=== PATIENT | female | born 1980 | race Caucasian/White ===

== ENCOUNTER 2016-12-20 15:44 | Emergency (ER) | payer MEDICAID ==
[~2016-12-20] VITALS: Ht 160 cm; Wt 72.5 kg
[~2016-12-20 15:44] MED LIST: ALBU2TAB PO
[2016-12-20 17:00] LABS: HEMATOCRIT 44.2 % (34.6-47.8); HEMOGLOBIN 14.8 g/dL (11.7-16.4); WHITE BLOOD COUNT 10.4 x10^3/uL (3.4-10)
[2016-12-20 17:10] LABS: BLOOD UREA NITROGEN 14 mg/dL (7-18)
[2016-12-20 18:17] VITALS: BP 103/70
== END 2016-12-20 18:24 | disposition home or self-care (01) ==
LOC: ED 18:17
DX: F41.1 Generalized anxiety disorder (principal); R42 Dizziness and giddiness; Z88.5 Allergy status to narcotic agent; Z88.0 Allergy status to penicillin
CPT/HCPCS: 36415; 80048; 82040; 84436; 84443; 85025; 93005; 99285

== ENCOUNTER 2017-02-06 01:59 | Emergency (ER) | payer MEDICAID ==
[~2017-02-06] VITALS: Ht 160 cm; Wt 74.0 kg
[2017-02-06] MEDS ORDERED: LORazepam 1MG TABLET PO ONE (02:30)
[2017-02-06] MEDS ORDERED: LORazepam 1MG TABLET ONE (02:40)
[2017-02-06 02:41] LABS: HEMATOCRIT 44.1 % (34.6-47.8); HEMOGLOBIN 14.6 g/dL (11.7-16.4); WHITE BLOOD COUNT 9.4 x10^3/uL (3.4-10)
[2017-02-06 02:53] LABS: BLOOD UREA NITROGEN 11 mg/dL (7-18)
[2017-02-06 03:36] VITALS: BP 127/78
== END 2017-02-06 03:38 | disposition home or self-care (01) ==
LOC: ED 03:07
DX: R53.1 Weakness (principal); J45.909 Unspecified asthma, uncomplicated; E04.2 Nontoxic multinodular goiter
CPT/HCPCS: 36415; 80048; 81001; 84439; 84443; 84703; 85025; 99284

== ENCOUNTER 2018-08-06 13:34 | Emergency (ER) | payer MEDICAID, OTHER ==
[~2018-08-06] VITALS: Ht 160 cm; Wt 72.4 kg
--- NOTE | 2018-08-06 13:45 | NUR ---
"I GOT THE FLU OR COLD OR SOMETHING. IT WENT TO MY LUNGS OR WHATEVER IT IS". C/O LUNG PAIN/CP. RAN OUT OF INHALER. SX STARTED 1 WK AGO. +FEVERS/CHILLS AT HOME. Reports muscle aches/ chills 4-5 days ago which has subsided to only intermittent fevers and feeling of chest tightness need to cough up sputum (but unable to do so). Home inhaler not helping. Appears well, no wob noted, clear lungs. resting in bed w call gaytan in hand/side rails up. Updated on estimated poc
--- NOTE | 2018-08-06 14:40 | NUR ---
Resting in bed comfortably. Call gaytan in hand, side rails up. Provider to bedside to updated on results thus far. Provider would like further workup (labs/urine). Ambulated to restroom from room w/out difficulty. Lab at bedside obtaining labs. Given water/saltines.
[2018-08-06] MEDS ORDERED: ALBU90AE INH (14:57)
[2018-08-06 15:01] LABS: BASOPHILS % (AUTO) 0 % (0-1); EOSINOPHILS % (AUTO) 4 % (1-7); LYMPHOCYTES % (AUTO) 16 % (22-44); MEAN CORPUSCULAR HEMOGLOBIN 30.2 pg (27.0-34.8); MEAN CORPUSCULAR HGB CONC 33.7 g/dL (32.4-35.8); MEAN CORPUSCULAR VOLUME 89.8 fL (80-100); MEAN PLATELET VOLUME 7.2 fL (7.4-10.4); MONOCYTES % (AUTO) 9 % (2-9); NEUTROPHILS % (AUTO) 71 % (42-75); PLATELET COUNT 306 x10^3/uL (130-400); RED BLOOD COUNT 4.74 x10^6/uL (3.82-5.3); RED CELL DISTRIBUTION WIDTH 14.4 % (9.6-15.2)
[2018-08-06 15:02] LABS: BASOPHILS # (AUTO) 0.01 x10^3/uL (0-0.1); EOSINOPHILS # (AUTO) 0.24 x10^3/uL (0-0.4); MD NO; MONOCYTES # (AUTO) 0.57 x10^3/uL (0.2-0.8); NEUTROPHILS # (AUTO) 4.46 x10^3/uL (1.8-6.8)
[2018-08-06 15:12] LABS: ALANINE AMINOTRANSFERASE 17 U/L (12-78); ALBUMIN 3.7 g/dL (3.4-5.0); ANION GAP 7 mmol/L (5-15); CALCIUM 8.6 mg/dL (8.5-10.1); CHLORIDE 112 mmol/L (98-107); CREATININE 0.51 mg/dL (0.55-1.02)
[2018-08-06 15:15] LABS: ALKALINE PHOSPHATASE 77 U/L (45-117); BILIRUBIN,TOTAL 0.3 mg/dL (0.2-1.0)
[2018-08-06 15:35] LABS: MICROSCOPIC INDICATED
[2018-08-06] MEDS ORDERED: IBUPROFEN 600 MG TABLET ONE (15:35)
[2018-08-06 15:47] LABS: CULTURE INDICATED? NO
[2018-08-06] MEDS ORDERED: IBUPROFEN 600 MG TABLET PO ONE (16:00)
--- NOTE | 2018-08-06 16:01 | NUR ---
Resting in bed w/ call gaytan in hand/side rails up. Reports prior dose of motrin helping RAMOS (now 06/21) temp now 98. Updated on estimated poc (all testing resulted)-ReCheck placed including request for her ProAir to be refilled.
[2018-08-06 16:24] VITALS: BP 99/69
== END 2018-08-06 16:26 | disposition home or self-care (01) ==
LOC: ED 16:20
DX: J20.9 Acute bronchitis, unspecified (principal); J45.909 Unspecified asthma, uncomplicated
CPT/HCPCS: 36415; 71046; 80053; 81001; 83690; 85025; 93005; 99284

== ENCOUNTER 2018-11-26 13:43 | Emergency (ER) | payer OTHER ==
[~2018-11-26 13:43] MED LIST changes: +ALBU90AE INH
[2018-11-26] MEDS ORDERED: ACETAMINOPHEN 500 MG TABLET PO ONE (14:30)
[2018-11-26] MEDS ORDERED: ONDANSETRON ODT 4 MG PO ONE (14:30)
[2018-11-26 14:52] LABS: ALBUMIN 3.7 g/dL (3.4-5.0); ANION GAP 7 mmol/L (5-15); BASOPHILS # (AUTO) 0.05 x10^3/uL (0-0.1); BASOPHILS % (AUTO) 1 % (0-1); CALCIUM 9.1 mg/dL (8.5-10.1); CHLORIDE 111 mmol/L (98-107); EOSINOPHILS # (AUTO) 0.14 x10^3/uL (0-0.4); EOSINOPHILS % (AUTO) 1 % (1-7); LYMPHOCYTES # (AUTO) 2.19 x10^3/uL (1-3.4); LYMPHOCYTES % (AUTO) 21 % (22-44); MD NO; MEAN CORPUSCULAR HEMOGLOBIN 29.6 pg (27.0-34.8); MEAN CORPUSCULAR HGB CONC 32.9 g/dL (32.4-35.8); MONOCYTES # (AUTO) 0.47 x10^3/uL (0.2-0.8); MONOCYTES % (AUTO) 5 % (2-9); NEUTROPHILS # (AUTO) 7.45 x10^3/uL (1.8-6.8); NEUTROPHILS % (AUTO) 72 % (42-75); PLATELET COUNT 354 x10^3/uL (130-400); RED BLOOD COUNT 4.77 x10^6/uL (3.82-5.3); RED CELL DISTRIBUTION WIDTH 13.8 % (9.6-15.2)
[2018-11-26 14:58] LABS: ALANINE AMINOTRANSFERASE 20 U/L (12-78); ALKALINE PHOSPHATASE 82 U/L (45-117); BILIRUBIN,TOTAL 0.1 mg/dL (0.2-1.0); CREATININE 0.58 mg/dL (0.55-1.02); TOTAL PROTEIN 7.2 g/dL (6.4-8.2)
[2018-11-26 15:00] VITALS: BP 116/79
[2018-11-26 15:10] LABS: MICROSCOPIC AUTO
[2018-11-26 15:11] LABS: CULTURE INDICATED? NO
[2018-11-26 15:19] LABS: AMPHETAMINE SCREEN, URINE Negative (Negative); BARBITURATE SCREEN, URINE Negative (Negative); BENZODIAZEPINE SCREEN, URINE Negative (Negative); CANNABINOID SCREEN, URINE Negative (Negative); COCAINE SCREEN, URINE Negative (Negative); METHADONE SCREEN, URINE Negative (Negative); OPIATE SCREEN, URINE Negative (Negative)
--- NOTE | 2018-11-26 16:02 | NUR ---
Checked in with patient; reports RAMOS improved; reports needs met at this time. Reoriented to room and call light. Verbalized understanding VSS.
--- NOTE | 2018-11-26 16:17 | NUR ---
REPORT RECEIVED FROM SHAHZAD SIMEON.
--- NOTE | 2018-11-26 16:24 | NUR ---
Patient given discharge instructions and they have confirmed that they understand the instructions. Patient ambulatory with steady gait.
== END 2018-11-26 16:24 | disposition home or self-care (01) ==
LOC: ED 16:10
DX: R56.9 Unspecified convulsions (principal); J45.909 Unspecified asthma, uncomplicated; F17.200 Nicotine dependence, unspecified, uncomplicated; Z88.0 Allergy status to penicillin; Z88.5 Allergy status to narcotic agent
CPT/HCPCS: 36415; 70450; 80053; 80307; 81001; 82607; 84443; 84703; 85025; 86592; 99284

== ENCOUNTER 2019-04-12 05:02 | Emergency (ER) | payer OTHER ==
[~2019-04-12] VITALS: Ht 160 cm; Wt 75.0 kg
--- NOTE | 2019-04-12 05:10 | NUR ---
PT WAS USING 'ANTISTOP ANT KILLER' ON HER CARBET TO KILL DUST MITES. SHE HAS AN ALLERGY TO DUST MITES AND WAS FEELING ICHY. USED ANT KILLER ON CARPET TO KILL POSSIBLE DUST MITES, GOT A HEADACHE AND DIZZINESS FROM ANT KILLER. PT CONTINUED TO FEEL ICHY AND SO SHE MIXED ANT KILLER WITH BODY LOTION AND RUBBED ALL OVER SKIN. PT STARTED TO FEEL WORSE, FAST HR, HEADACHE AND HALLUCINATION. THEN TOOK A SHOWER AND WASHED IT ALL OFF. CALLED 911. DENIES PAIN OR RAMOS AT THIS TIME. PT ATTACHED TO ALL MONITORS
[2019-04-12 06:20] VITALS: BP 107/62
[2019-04-12 06:26] LABS: MICROSCOPIC AUTO
[2019-04-12 06:28] LABS: CULTURE INDICATED? NO
[2019-04-12 06:30] LABS: BASOPHILS # (AUTO) 0.04 x10^3/uL (0-0.1); BASOPHILS % (AUTO) 0 % (0-1); EOSINOPHILS % (AUTO) 2 % (1-7); LYMPHOCYTES # (AUTO) 2.34 x10^3/uL (1-3.4); LYMPHOCYTES % (AUTO) 18 % (22-44); MD NO; MEAN CORPUSCULAR HEMOGLOBIN 30.4 pg (27.0-34.8); MEAN CORPUSCULAR HGB CONC 33.1 g/dL (32.4-35.8); MEAN PLATELET VOLUME 7.2 fL (7.4-10.4); MONOCYTES # (AUTO) 0.51 x10^3/uL (0.2-0.8); MONOCYTES % (AUTO) 4 % (2-9); NEUTROPHILS # (AUTO) 10.06 x10^3/uL (1.8-6.8); NEUTROPHILS % (AUTO) 77 % (42-75); PLATELET COUNT 360 x10^3/uL (130-400); RED BLOOD COUNT 4.83 x10^6/uL (3.82-5.3); RED CELL DISTRIBUTION WIDTH 14.1 % (9.6-15.2)
[2019-04-12 06:36] LABS: AMPHETAMINE SCREEN, URINE Negative (Negative); BARBITURATE SCREEN, URINE Negative (Negative); BENZODIAZEPINE SCREEN, URINE Negative (Negative); CANNABINOID SCREEN, URINE Negative (Negative); COCAINE SCREEN, URINE Negative (Negative); METHADONE SCREEN, URINE Negative (Negative); OPIATE SCREEN, URINE Negative (Negative)
[2019-04-12 06:38] LABS: ALANINE AMINOTRANSFERASE 21 U/L (12-78); ALBUMIN 3.5 g/dL (3.4-5.0); ANION GAP 6 mmol/L (5-15); CALCIUM 8.9 mg/dL (8.5-10.1); CHLORIDE 109 mmol/L (98-107); CREATININE 0.65 mg/dL (0.55-1.02)
[2019-04-12 06:43] LABS: ALKALINE PHOSPHATASE 71 U/L (45-117); BILIRUBIN,TOTAL 0.2 mg/dL (0.2-1.0); TOTAL PROTEIN 7.2 g/dL (6.4-8.2)
[2019-04-12] MEDS ORDERED: LEVETIRACETAM 500 MG TABLET ONE (08:13)
[2019-04-12] MEDS ORDERED: QUETIAPINE 25MG TABLET ONE (08:13)
== END 2019-04-12 08:18 | disposition home or self-care (01) ==
LOC: ED 07:16
DX: L24.5 Irritant contact dermatitis due to other chemical products (principal); J45.909 Unspecified asthma, uncomplicated
CPT/HCPCS: 36415; 80053; 80307; 81001; 84443; 84703; 85025; 93005; 99284

== ENCOUNTER 2019-10-09 08:52 | Emergency (ER) | payer MEDICAID, OTHER ==
[~2019-10-09] VITALS: Ht 160 cm; Wt 76.3 kg
--- NOTE | 2019-10-09 09:27 | NUR ---
FIRST CONTACT WITH PT. PT STATES PALPATAIONS STARTING THIS AM AT 0730 WHEN SHE GOT HOME FROM WORK. STATES BILAT ARM N/T/RAMOS/DZY/NAUSEA WELL. STATES "I FEEL BETTER NOW.MOST OF SYMPTOMS ARE GONE NOW" STATES HX OF SAME. PT'S AOX4. RESPS EVEN AND UNLABORED. ALL MONITORS IN PLACE. CALL LIGHT WITHIN REACH. NSR RATE 80'S ON ELECTRICAL LOGGER.
--- NOTE | 2019-10-09 09:55 | NUR ---
xray in room.
[2019-10-09 10:18] LABS: BASOPHILS # (AUTO) 0.01 x10^3/uL (0-0.1); BASOPHILS % (AUTO) 0 % (0-1); EOSINOPHILS # (AUTO) 0.14 x10^3/uL (0-0.4); EOSINOPHILS % (AUTO) 1 % (1-7); LYMPHOCYTES # (AUTO) 2.02 x10^3/uL (1-3.4); LYMPHOCYTES % (AUTO) 21 % (22-44); MD NO; MEAN CORPUSCULAR HEMOGLOBIN 29.6 pg (27.0-34.8); MEAN CORPUSCULAR HGB CONC 32.9 g/dL (32.4-35.8); MEAN PLATELET VOLUME 6.9 fL (7.4-10.4); MONOCYTES # (AUTO) 0.71 x10^3/uL (0.2-0.8); MONOCYTES % (AUTO) 7 % (2-9); NEUTROPHILS # (AUTO) 6.82 x10^3/uL (1.8-6.8); NEUTROPHILS % (AUTO) 70 % (42-75); PLATELET COUNT 363 x10^3/uL (130-400); RED BLOOD COUNT 4.66 x10^6/uL (3.82-5.3); RED CELL DISTRIBUTION WIDTH 14.6 % (9.6-15.2)
[2019-10-09 10:29] LABS: ALANINE AMINOTRANSFERASE 20 U/L (12-78); ALBUMIN 3.5 g/dL (3.4-5.0); ANION GAP 7 mmol/L (5-15); CALCIUM 9.2 mg/dL (8.5-10.1); CHLORIDE 106 mmol/L (98-107); CREATININE 0.69 mg/dL (0.55-1.02)
[2019-10-09 10:34] LABS: ALKALINE PHOSPHATASE 76 U/L (45-117); BILIRUBIN,TOTAL 0.2 mg/dL (0.2-1.0); TOTAL PROTEIN 7.2 g/dL (6.4-8.2); TROPONIN I < 0.015 ng/mL (0.000-0.045)
--- NOTE | 2019-10-09 10:35 | NUR ---
pt resting in [facility]. pt's aox4. resps even and unlabored. all monitors in place. call light within reach. pt states"i feel much better."
[2019-10-09 10:43] LABS: T4 (THYROXINE) 8.8 mcg/dL (4.8-13.9)
[2019-10-09 11:35] VITALS: BP 101/68
--- NOTE | 2019-10-09 11:36 | NUR ---
Patient given discharge instructions and they have confirmed that they understand the instructions. Patient ambulatory with steady gait.
== END 2019-10-09 11:37 | disposition home or self-care (01) ==
LOC: ED 09:29
DX: R00.2 Palpitations (principal); R07.89 Other chest pain; F17.200 Nicotine dependence, unspecified, uncomplicated
CPT/HCPCS: 36415; 71045; 80053; 83735; 84436; 84443; 84484; 85025; 93005; 99285